=== PATIENT | female | born 1995 | race African-American/Black ===

== ENCOUNTER 2021-01-24 11:50 | Emergency (ER) | payer OTHER ==
[~2021-01-24] VITALS: Ht 157.5 cm; Wt 62.3 kg
[2021-01-24 11:51] VITALS: BP 117/57
[2021-01-24] MEDS ORDERED: birth control (12:08)
[2021-01-24] MEDS ORDERED: ACETAMINOPHEN TAB 650MG DOSE (2X325MG) PO ONE (12:25)
[2021-01-24] MEDS ORDERED: KETOROLAC 30 MG/ML 1ML VIAL IM ONE (12:25)
--- NOTE | 2021-01-24 13:40 | REP ---
INDICATION: trauma, right radiculopathy. COMPARISON: None. TECHNIQUE: Five views of the lumbar spine are provided. FINDINGS: Lumbar vertebral body heights are preserved. Alignment is normal. There is no evidence of fracture or collapse. No spondylolysis or spondylolisthesis is seen. Psoas margins are symmetric. Sacrum and SI joints are unremarkable. Visualized bowel gas pattern is unremarkable. IMPRESSION: Negative lumbar spine radiographs. No traumatic abnormality noted. <Electronically signed by Arturo Martinez > 01/24/21 [id number]
[2021-01-24] MEDS ORDERED: CYCL-707 PO (13:47)
[2021-01-24] MEDS ORDERED: KETO10TAB PO (13:47)
== END 2021-01-24 13:59 | disposition home or self-care (01) ==
LOC: M ED 11:50
DX: S33.9XXA Sprain of unspecified parts of lumbar spine and pelvis, initial encounter (principal); M54.31 Sciatica, right side; W00.9XXA Unspecified fall due to ice and snow, initial encounter; Y92.89 Other specified places as the place of occurrence of the external cause; Y93.9 Activity, unspecified; Y99.1 Military activity
CPT/HCPCS: 72110; 96372; 99282; J1885

== ENCOUNTER → 2023-08-10 | Outpatient (CLI) | payer OTHER ==
[~2023-08-10] MED LIST: CYCL-707 PO; KETO10TAB PO; birth control
[2023-08-10 20:00] LABS: BLOOD UREA NITROGEN 12 MG/DL (9-23); CALCIUM LEVEL 9.7 MG/DL (8.5-10.1); CARBON DIOXIDE LEVEL 27 MMOL/L (20-31); CHLORIDE LEVEL 104 MMOL/L (98-107); CREATININE FOR GFR 0.66 MG/DL (0.55-1.30); GLOMERULAR FILTRATION RATE > 60.0 (>60); GLUCOSE, FASTING 76 MG/DL (60-100); POTASSIUM SERUM 3.8 MMOL/L (3.5-5.1); SODIUM LEVEL 137 MMOL/L (136-145)
[2023-08-10 20:26] LABS: HEMOGLOBIN A1c 4.7 % (4.0-6.0)
== END ==
LOC: M WUC 15:13
PROVIDERS: ATTEND Student in an Organized Health Care Education/Training Program
DX: R53.83 Other fatigue (principal)